=== PATIENT | male | born 1970 | race Caucasian/White ===

== ENCOUNTER → 2016-10-27 | Outpatient (CLI) | payer OTHER ==
[~2016-10-27] MED LIST: CONRAY-43 43% 50ML VIAL (Q9960) As Ordered ONE
== END ==
LOC: M RAD 14:53
PROVIDERS: ATTEND Student in an Organized Health Care Education/Training Program
DX: M25.511 Pain in right shoulder (principal); M25.512 Pain in left shoulder; Z53.9 Procedure and treatment not carried out, unspecified reason